=== PATIENT | male | born 1980 | race Hispanic/Latino ===

== ENCOUNTER 2024-06-16 08:02 | Day surgery (SDC) | payer BC ==
[~2024-06-16] VITALS: Ht 167.6 cm; Wt 104.3 kg
[2024-06-16] VITALS (10 sets, daily range): BP systolic 99–122; BP diastolic 64–86; PULSE 64–73; RESP 15–18; TEMP 97.7–98.1
[~2024-06-16 08:02] MED LIST: 0.9%NACL 1000ML 1,000 ML IV ONE
[2024-06-16] MEDS: 0.9%NACL 1000ML 1,000 ML IV ONE (09:35)
[2024-06-16] MEDS ORDERED: proPOFol 10 MG/ML 20ML VIAL IV ONE (10:23)
--- NOTE | 2024-06-16 11:40 | NUR ---
Full and complete discharge instructions given to Patient and Family both verbally and in writing. Explained GI procedure precautions and follow up. All questions answered. PIV removed with catheter tip intact. Home with Family W/C to POV.
== END 2024-06-16 11:40 | disposition home or self-care (01) ==
LOC: ENDO 08:02 → DAH 08:02 → ENDO 11:40
PROVIDERS: ATTEND Internal Medicine
DX: Z12.11 Encounter for screening for malignant neoplasm of colon (principal); K64.4 Residual hemorrhoidal skin tags; K64.0 First degree hemorrhoids; I10 Essential (primary) hypertension; E11.9 Type 2 diabetes mellitus without complications; E66.9 Obesity, unspecified; Z98.1 Arthrodesis status; Z68.36 Body mass index [BMI] 36.0-36.9, adult; Z79.899 Other long term (current) drug therapy
CPT/HCPCS: 45378; J7030 ×4; J2704; A4620; A4215 ×2; A4223; A4222; A4221; A4663; A4606; J3490